=== PATIENT | female | born 1945 | race Asian ===

== ENCOUNTER 2018-01-29 03:25 | Emergency (ER) | payer MEDICARE, OTHER ==
[~2018-01-29] VITALS: Ht 162.6 cm; Wt 60.0 kg
[~2018-01-29 03:25] MED LIST: AMLO-511 PO; CALC-895 PO; LISI-661 PO; ROSU10 PO; TOLT4CAP33 PO
[2018-01-29] MEDS ORDERED: SODIUM BICARBONATE [ADULT] 8.4% 50 MEQ/50 ML SYRINGE IVP ONE ×3 (03:26→04:45)
[2018-01-29] MEDS ORDERED: NOREPINEPHRINE 4 MG/D5%-WATER 250 ML IV ONE (03:37)
[2018-01-29] MEDS ORDERED: METF-960 PO (03:40)
[2018-01-29 03:44] LABS: GLUCOSE,POINT OF CARE 107 MG/DL (70-110)
[2018-01-29] MEDS ORDERED: SODIUM CHLORIDE 0.9% 1,000 ML IV ONE (03:45)
[2018-01-29 03:51] LABS: ABG A-A DIFF O2 578.1 mmHg (10-20.0); ABG BASE EXCESS -25.3 mmol/L (-2.0-3.0); ABG METHEMOGLOBIN 0.4 % (0.0-1.5); ABG OXYGEN CONTENT 13.3 mL/dL (15.0-23.0); ABG OXYHEMOGLOBIN 76.2 % (94.0-100.0); ABG PCO2 61 mmHg (35-45); ABG TOTAL HEMOGLOBIN 12.3 G/dL (12.0-18.0); SOURCE, BLOOD GAS ARTERIAL; TEMPERATURE, FAHRENHEIT, BG 98.6 FAHREN (96.0-98.6)
[2018-01-29 03:57] LABS: ABG HCO3 6.5 mmol/L (22.0-26.0); ABG OXYGEN SATURATION 77.3 % (95.0-98.0); ABG PH 6.799 (7.35-7.450); O2 DEVICE,BLOOD GAS VENTILATOR (ROOM AIR); PEEP,BG 5 cm H2O; SITE, BLOOD GAS RT RADIAL; VT, ABG 500 ml
[2018-01-29 04:35] LABS: ABG A-A DIFF O2 620.6 mmHg (10-20.0); ABG BASE EXCESS -20.1 mmol/L (-2.0-3.0); ABG CARBOXYHEMOGLOBIN 0.9 % (0.0-1.5); ABG METHEMOGLOBIN 0.5 % (0.0-1.5); ABG OXYGEN CONTENT 13.5 mL/dL (15.0-23.0); ABG OXYHEMOGLOBIN 78.6 % (94.0-100.0); ABG PCO2 41 mmHg (35-45); ABG TOTAL HEMOGLOBIN 12.2 G/dL (12.0-18.0); PO2, ARTERIAL BG 56.6 mmHg (75.0-83.0); SOURCE, BLOOD GAS ARTERIAL; TEMPERATURE, FAHRENHEIT, BG 94.6 FAHREN (96.0-98.6)
[2018-01-29 04:36] LABS: ABG PH 7.032 (7.35-7.450)
[2018-01-29] MEDS ORDERED: RAPID SEQUENCE KIT [RSI] 1 EACH KIT ONE (04:36)
[2018-01-29 04:37] LABS: ABG HCO3 9.8 mmol/L (22.0-26.0); ABG OXYGEN SATURATION 79.7 % (95.0-98.0); O2 DEVICE,BLOOD GAS VENTILATOR (ROOM AIR); PEEP,BG 5 cm H2O; SITE, BLOOD GAS LFT RADIAL; VT, ABG 500 ml
[2018-01-29] MEDS ORDERED: HEPARIN SODIUM,PORCINE 5,000 UNITS/ML VIAL ONE (04:37)
[2018-01-29] MEDS ORDERED: HEPARIN SODIUM,PORCINE 5,000 UNITS/ML VIAL IVP ONE (04:45)
[2018-01-29] MEDS ORDERED: ASPIRIN 300 MG RECTAL SUPPOSITORY PR ONE (04:45)
[2018-01-29] MEDS ORDERED: HEPARIN SODIUM 25000 UNITS/D5W 250 ML IV PRN (04:45)
[2018-01-29] MEDS ORDERED: VECURONIUM BROMIDE 10 MG/VIAL IVP ONE (04:45)
[2018-01-29 04:50] VITALS: BP 136/46
[2018-01-29] MEDS ORDERED: NOREPINEPHRINE 4 MG/D5%-WATER 250 ML IV PRN (05:00)
== END 2018-01-29 05:00 | disposition short-term general hospital (02) ==
LOC: EMS 03:25
DX: I46.9 Cardiac arrest, cause unspecified (principal); I21.09 ST elevation (STEMI) myocardial infarction involving other coronary artery of anterior wall; E78.00 Pure hypercholesterolemia, unspecified; I10 Essential (primary) hypertension; Z79.84 Long term (current) use of oral hypoglycemic drugs; Z79.899 Other long term (current) drug therapy
CPT/HCPCS: 31500; 70450; 71045; 72125; 82805; 82962; 92950; 93005; 96374; 96375; 99291; 99292; J1644; J3490 ×2; 94002